=== PATIENT | male | born 2000 | race African-American/Black ===

== ENCOUNTER 2023-04-06 11:36 | Emergency (ER) | payer OTHER ==
[2023-04-06 12:00] VITALS: O2SAT 99
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
== END 2023-04-06 12:46 | disposition home or self-care (01) ==
LOC: ED 11:36
DX: S16.1XXA Strain of muscle, fascia and tendon at neck level, initial encounter (principal); V49.9XXA Car occupant (driver) (passenger) injured in unspecified traffic accident, initial encounter; Y99.1 Military activity
CPT/HCPCS: 99282; 99283